=== PATIENT | male | born 1965 | race Caucasian/White ===

== ENCOUNTER 2016-04-12 12:36 | Inpatient (IN) | payer MEDICARE, OTHER ==
[~2016-04-12] VITALS: Ht 172.7 cm; Wt 81.6 kg
[2016-04-12 15:47] LABS: HEMOGLOBIN 16.2 gm/dl (14.0-17.5); RED BLOOD COUNT 5.25 M/UL (4.20-5.50); WHITE BLOOD COUNT 10.6 K/UL (4.5-11.0)
[2016-04-13 06:40] LABS: HEMOGLOBIN 11.7 gm/dl (14.0-17.5); RED BLOOD COUNT 3.82 M/UL (4.20-5.50); WHITE BLOOD COUNT 6.4 K/UL (4.5-11.0)
[2016-04-13] MEDS ORDERED: PRILOSEC OTC20 MG PO (08:49)
[2016-04-13] MEDS ORDERED: LYRICA200 MG PO (08:49)
[2016-04-13] MEDS ORDERED: SINEMET 25-1001 EACH PO (08:50)
[2016-04-13] MEDS ORDERED: HYDROCHLOROTHIA25 MG PO (08:50)
[2016-04-13] MEDS ORDERED: METOPROLOL TART25 MG PO (08:51)
[2016-04-13] MEDS ORDERED: ASPIRIN325 MG PO (08:52)
[2016-04-13] MEDS ORDERED: CELEBREX200 MG PO (08:52)
[2016-04-13] MEDS ORDERED: AMBIEN10 MG PO (08:53)
[2016-04-13] MEDS ORDERED: FLEXERIL 10 MG10 MG PO (08:55)
[2016-04-13] MEDS ORDERED: PROAIR HFA8.5 GM INH (08:58)
[2016-04-13] MEDS ORDERED: SYMBICORT 160-1 INHA INH (09:02)
[2016-04-14 03:33] LABS: HEMOGLOBIN 11.1 gm/dl (14.0-17.5); RED BLOOD COUNT 3.65 M/UL (4.20-5.50); WHITE BLOOD COUNT 6.6 K/UL (4.5-11.0)
[2016-04-14 03:51] LABS: BUN/CREATININE RATIO 14 (0-10)
[2016-04-15 03:49] LABS: RED BLOOD COUNT 3.62 M/UL (4.20-5.50); WHITE BLOOD COUNT 6.4 K/UL (4.5-11.0)
[2016-04-15 04:05] LABS: BUN/CREATININE RATIO 13 (0-10)
[2016-04-17 05:59] LABS: HEMOGLOBIN 10.7 gm/dl (14.0-17.5); RED BLOOD COUNT 3.54 M/UL (4.20-5.50); WHITE BLOOD COUNT 5.9 K/UL (4.5-11.0)
[2016-04-17 06:17] LABS: BUN/CREATININE RATIO 14 (0-10)
[2016-04-17] MEDS ORDERED: AVELOX400 MG PO (17:17)
[2016-04-17] MEDS ORDERED: ROBITUSSIN DM473 ML PO (17:18)
[2016-04-17] MEDS ORDERED: TYLENOL 325MG325 MG PO (18:03)
== END 2016-04-17 19:04 | disposition home or self-care (01) | DRG 193 ==
LOC: ER1 12:36 → ZEROF 20:31 → CCU 20:31 → M/S 20:31 → CCU 04-13 10:39 → PROG CARE 04-13 18:43 → M/S 04-15 11:50
PROVIDERS: Emergency Medicine; Internal Medicine; ADMIT Internal Medicine
DX: J18.9 Pneumonia, unspecified organism (principal); G93.49 Other encephalopathy; N17.9 Acute kidney failure, unspecified; I10 Essential (primary) hypertension; R50.9 Fever, unspecified; J60 Coalworker's pneumoconiosis; G47.419 Narcolepsy without cataplexy; E87.6 Hypokalemia; F51.19 Other hypersomnia not due to a substance or known physiological condition; Z28.21 Immunization not carried out because of patient refusal; M47.816 Spondylosis without myelopathy or radiculopathy, lumbar region; R53.1 Weakness; E78.5 Hyperlipidemia, unspecified; R91.1 Solitary pulmonary nodule; K21.9 Gastro-esophageal reflux disease without esophagitis; N28.1 Cyst of kidney, acquired; Z86.73 Personal history of transient ischemic attack (TIA), and cerebral infarction without residual deficits; Z88.0 Allergy status to penicillin; Z88.8 Allergy status to other drugs, medicaments and biological substances; Z82.49 Family history of ischemic heart disease and other diseases of the circulatory system; Z79.82 Long term (current) use of aspirin; Z79.899 Other long term (current) drug therapy
CPT/HCPCS: 36415; 70450; 71010; 71020; 71250; 80048; 80053; 81001; 82140; 82550; 82553; 82570; 83605; 83874; 84132; 84300; 84484; 85025; 85027; 85610; 85730; 86039; 86060; 87040; 87070; 87205; 89050; 93005; 94640; 94664; 96365; 96367; 96375; 99285; J0456; J0696; J2280; J7030; J7050

== ENCOUNTER → 2016-05-08 | Outpatient (CLI) | payer MEDICARE ==
[~2016-05-08] MED LIST: AMBIEN10 MG PO; ASPIRIN325 MG PO; AVELOX400 MG PO; CELEBREX200 MG PO; FLEXERIL 10 MG10 MG PO; HYDROCHLOROTHIA25 MG PO; LYRICA200 MG PO; METOPROLOL TART25 MG PO; PRILOSEC OTC20 MG PO; PROAIR HFA8.5 GM INH; ROBITUSSIN DM473 ML PO; SINEMET 25-1001 EACH PO; SYMBICORT 160-1 INHA INH; TYLENOL 325MG325 MG PO
== END ==
LOC: RAD 08:54
DX: J15.9 Unspecified bacterial pneumonia (principal); J90 Pleural effusion, not elsewhere classified; R91.8 Other nonspecific abnormal finding of lung field
CPT/HCPCS: 71020

== ENCOUNTER → 2016-07-26 | Outpatient (CLI) | payer MEDICARE | LOC: RAD 13:30 | DX: J20.9 Acute bronchitis, unspecified (principal); R91.1 Solitary pulmonary nodule | CPT/HCPCS: 71020 ==

== ENCOUNTER 2020-07-23 21:18 | Emergency (ER) | payer MEDICARE, OTHER ==
[2020-07-24 01:21] LABS: HEMOGLOBIN 13.3 gm/dl (14.0-17.5); RED BLOOD COUNT 4.89 M/UL (4.20-5.50); WHITE BLOOD COUNT 4.7 K/UL (4.5-11.0)
[2020-07-24 01:27] LABS: BUN/CREATININE RATIO 27 (0-10)
[2020-07-24] MEDS ORDERED: OXYCONTIN15 MG PO (06:58)
== END 2020-07-24 07:40 | disposition home or self-care (01) ==
LOC: ER1 21:18
PROVIDERS: Physician Assistant
DX: M25.552 Pain in left hip (principal); M54.5 Low back pain; I10 Essential (primary) hypertension; Z90.89 Acquired absence of other organs; Z88.0 Allergy status to penicillin; Z88.8 Allergy status to other drugs, medicaments and biological substances
CPT/HCPCS: 72131; 73502; 80053; 83605; 85025; 85652; 86140; 87040; 96374; 96375; 96376; 99284; J2270; J2405; J3370; J7030

== ENCOUNTER → 2020-11-22 | Outpatient (CLI) | payer MEDICARE ==
[~2020-11-22] MED LIST changes: +OXYCONTIN15 MG PO
== END ==
LOC: CT 09:23
DX: M54.50 Low back pain, unspecified (principal); Z98.1 Arthrodesis status
CPT/HCPCS: 36415; 72131; 82565; Q9967

== ENCOUNTER → 2021-01-02 | Outpatient (CLI) | payer MEDICARE | LOC: EXRD 12-29 10:30 | DX: Z79.83 Long term (current) use of bisphosphonates (principal); M81.0 Age-related osteoporosis without current pathological fracture | CPT/HCPCS: 77080 ==

== ENCOUNTER → 2021-01-02 | Outpatient (CLI) | payer MEDICARE ==
[2021-01-02 16:09] LABS: HEMOGLOBIN 12.8 gm/dl (14.0-17.5); RED BLOOD COUNT 5.23 M/UL (4.20-5.50); WHITE BLOOD COUNT 4.7 K/UL (4.5-11.0)
[2021-01-02 16:44] LABS: BUN/CREATININE RATIO 27 (0-10)
== END ==
LOC: LAB 15:04
PROVIDERS: Orthopaedic Surgery
DX: M96.0 Pseudarthrosis after fusion or arthrodesis (principal); I10 Essential (primary) hypertension
CPT/HCPCS: 36415; 80053; 85027; 85652; 86140